=== PATIENT | female | born 1945 | race Caucasian/White ===

== ENCOUNTER → 2017-11-08 10:51 | Outpatient (CLI) | payer MEDICARE, OTHER, SELFPAY ==
--- NOTE | 2017-11-08 | DI.US.S_ITS ---
ULTRASOUND OF RIGHT BREAST: 11/08/2017 CLINICAL: Right breast lump 12:00. Right breast pain 9:00. No prior exams were available for comparison. Color flow ultrasound of the right breast was performed. Bella scale images of the real-time examination were reviewed. IMPRESSION: NEGATIVE There is no sonographic evidence of malignancy. There is no abnormality seen in the right breast to correspond with the area of clinical concern, however, clinical followup is recommended. A 1 year screening mammogram is recommended. This exam was interpreted at Station ID: [id number]. Electronically Signed By: Johnny piedra/sariah:11/08/2017 11:59:30 letter sent: Clinical Evaluation Ultrasound BI-RADS: 1 Negative
== END ==
PROVIDERS: Visit Provider Specialist
DX: N64.4 Mastodynia (principal); N63.10 Unspecified lump in the right breast, unspecified quadrant
CPT/HCPCS: 76642

== ENCOUNTER → 2018-08-31 12:17 | Outpatient (CLI) | payer MEDICARE, OTHER, SELFPAY ==
--- NOTE | 2018-08-31 12:21 | DI.RAD.S_ITS ---
PROCEDURE: XR LUMBAR SPINE MIN 4V INDICATIONS: Scoliosis status post laminectomy TECHNIQUE: 5 views of the lumbar spine were acquired. COMPARISON: None. FINDINGS: Bones: 5 nonrib-bearing vertebrae are present. There is probably abnormal bony alignment with 56? convex leftward scoliosis centered at L1. No vertebral body compression fractures. No suspicious bony lesions. Degenerative disc disease and facet osteoarthritis over the lumbosacral spine is moderately severe, and most pronounced over the middle and lower thirds. Subluxation is not seen in an anterior-posterior orientation but there is grade 1 left lateral subluxation of L2 on L3. Soft tissues: Overlying bowel gas pattern is normal. No suspicious soft tissue calcifications. Oblique images: No pars defects. IMPRESSION: No trauma found. Moderately severe convex leftward scoliosis centered at the thoracolumbar junction, 56?. Moderately severe degenerative disc disease and facet osteoarthritis most prominent over the middle and lower thirds of the lumbosacral spine. Significant multilevel spinal and foraminal stenosis would be expected. Dictated by: Shayne Ang M.D. on 08/31/2018 at 13:16 Approved by: Shayne Ang M.D. on 08/31/2018 at 13:18
--- NOTE | 2018-08-31 12:21 | DI.RAD.S_ITS ---
PROCEDURE: XR THORACIC SPINE 3V INDICATIONS: Scoliosis status post laminectomy TECHNIQUE: 3 views of the thoracic spine were acquired. COMPARISON: None. FINDINGS: Bones: No fractures or dislocations. No suspicious bony lesions. 12 pairs of ribs are noted, and appear intact where visualized. There is 56? convex leftward scoliosis centered at the thoracolumbar junction, and a compensatory lesser degree of convex rightward scoliosis is noted, 43.2? centered at the junction of the middle and lower thirds of the thoracic spine Soft tissues: No paravertebral stripe thickening. IMPRESSION: 43? convex rightward scoliosis centered at the junction of the middle and lower thirds of the thoracic spine. No recent trauma seen. Prominent convex leftward scoliosis has been previously discussed during lumbosacral spine plain film report same day. No subluxation seen. Dictated by: Shayne Ang M.D. on 08/31/2018 at 13:18 Approved by: Shayne Ang M.D. on 08/31/2018 at 13:20
== END ==
PROVIDERS: Visit Provider Physical Medicine & Rehabilitation
DX: M41.25 Other idiopathic scoliosis, thoracolumbar region (principal); M51.37 Other intervertebral disc degeneration, lumbosacral region; M47.817 Spondylosis without myelopathy or radiculopathy, lumbosacral region; M99.83 Other biomechanical lesions of lumbar region
CPT/HCPCS: 72072; 72110; 99214

== ENCOUNTER → 2018-12-13 10:57 | Outpatient (CLI) | payer MEDICARE, OTHER, SELFPAY ==
--- NOTE | 2018-12-13 11:08 | DI.MG.S_ITS ---
BILATERAL DIGITAL SCREENING MAMMOGRAM 3D/2D WITH CAD: 12/13/2018 CLINICAL: Routine screening. Comparison is made to exams dated: 03/01/2016 mammogram - [facility], 10/30/2017 mammogram - [facility], and 08/20/2012 mammogram - [facility]. The tissue of both breasts is heterogeneously dense. This may lower the sensitivity of mammography. Current study was also evaluated with a Computer Aided Detection (CAD) system. No significant masses, calcifications, or other findings are seen in either breast. There has been no significant interval change. IMPRESSION: NEGATIVE There is no mammographic evidence of malignancy. A 1 year screening mammogram is recommended. This exam was interpreted at Station ID: [id number]. NOTE: For mammograms, a report in lay terms will be sent to the patient. Approximately 15% of breast malignancies will not be visualized mammographically. In the management of a palpable breast mass, a negative mammogram must not discourage biopsy of a clinically suspicious lesion. Electronically Signed By: Carmina hsu/sariah:12/13/2018 12:10:12 letter sent: Normal Exam ACR BI-RADS Category 1: Negative [id number]
== END ==
PROVIDERS: PCP Internal Medicine; Visit Provider Internal Medicine
DX: Z12.31 Encounter for screening mammogram for malignant neoplasm of breast (principal)
CPT/HCPCS: 77063; 77067

== ENCOUNTER 2019-04-30 09:56 | Outpatient (CLI) | payer MEDICARE, OTHER, SELFPAY ==
[2019-04-30] VITALS (9 sets, daily range): BP systolic 93–138; BP diastolic 41–90; PULSE 73–86; RESP 14–16; TEMP 36.2; O2SAT 75–99
--- NOTE | 2019-04-30 09:57 | DI.RAD.S_ITS ---
PROCEDURE: PAIN C/T INTERLAMINAR INJECT INDICATIONS: SPONDYLOSIS FINDINGS: Fluoroscopic spot filming was performed to verify placement of spinal needles at the C6-C7 level(s), as labeled on the films. Appropriate location(s) of the needle tip(s) was confirmed by injection of iodinated contrast. IMPRESSION: C6-C7 translaminar epidural needle placement. Dictated by: Patrick Andrade M.D. on 04/30/2019 at 13:16 Approved by: Patrick Andrade M.D. on 04/30/2019 at 13:17
[2019-04-30] MEDS: DEXAMETHASONE 10 MG/ML VIAL 30 MG INJ (10:35)
[2019-04-30] MEDS: LIDOCAINE 1% 20 ML 5 ML INJ (10:35)
[2019-04-30] MEDS: IOPAMIDOL 15 ML VIAL 3 ML INJ (10:35)
--- NOTE | 2019-04-30 10:47 | PM.PROC.1 ---
Procedures Date/Time Date of procedure: 04/30/19 Time of procedure: 10:47 General Procedure description: PREOP DIAGNOSIS 1. CERVICAL STENOSIS, 2. CERVICAL HNP WITH UPPER EXTREMITY RADICULAR FEATURES, POST OP DIAGNOSIS 1. CERVICAL STENOSIS, 2. CERVICAL HNP WITH UPPER EXTREMITY RADICULAR FEATURES, PROCEDURES 1. FLUORSCOPICALLY GUIDED CONTRAST CONTROLLED INTERLAMINAR EPIDURAL STEROID INJECTION - C6/7 TL MAX PHYSICIAN: Martin Porter, DO INDICATIONS Kaylee is referred for treatment of Cervical HNP with Upper Extremity Paresthesias. FINDINGS Cervical Stenosis due to disc deterioration and nerve root irritation and nerve root irritation DESCRIPTION OF PROCEDURE Fluoroscopically guided, contrast-controlled C6/7 translaminar epidural steroid injection with conscious sedation. Following review of allergy and review of potential side effects and complications, including, but not necessarily limited to, infection, allergic reaction, local tissue breakdown, temporary as well as permanent nerve injury, stroke, paralysis, and possible , the patient indicated that patient understood and agreed to proceed. An informed consent document was signed by the patient, witnessed by a nurse, and placed in the patient's chart. Additionally, other treatment options including modalities, medications, and physical therapy were reviewed with the patient. After review of previous anaesthesic history and IV conscious sedation the patient was deemed safe to proceed with todays procedure with IV conscious sedation as ASA class II designation. Safety time-out was performed to confirm patient ID, procedure to be performed and site of procedure. IV sedation was accomplished with a combination of 2mg of Versed and 50mcg of Fentanyl administered by the RN after DO order, titrated to patient comfort during the course of the procedure while the patient remained responsive to all verbal commands. In the prone position, following sterile prep and drape of the cervical region, the C6/7 translaminar space was identified fluoroscopically. The skin was anesthetized via a 25-gauge 1.5-inch needle with 1% lidocaine solution. At this point, a 25-gauge, 2.5-inch short bevel spinal needle was atraumatically introduced and advanced under fluoroscopic guidance into epidural space at the C6/7 translaminar space. Depth was confirmed on lateral view. Radiological data, including multiple fluoroscopic views of the cervical spine, reveal a spinal needle at the C6/7 translaminar space. Lateral views then show placement of the needle in the epidural space. Subsequent views show contrast material flowing superiorly and inferiorly in the epidural space. DSA fluoroscopy with live contrast injection, once again, confirmed no vascular or intrathecal uptake. At this point, using loss of resistance technique with saline and air, the epidural space was entered. Following negative aspiration, injection of approximately 1.5 cc of Isovue-200 with live fluoroscopy in the AP view confirmed epidural flow in the epidural space without vascular or intrathecal uptake observed. Subsequently, a test dose of 1 cc of 1% lidocaine solution was injected and patient was observed for two minutes without signs or symptoms of complications, including abdominal pain, shortness of breath, bilateral upper or lower extremity weakness, nausea and vomiting, prior to steroid injection. At this point, 3cc or 30mg of dexamethasone was then injected without incident. The patient tolerated the procedure well without signs or symptoms of complications prior to being transferred to the recovery area for further monitoring, The patient was then transferred to the recovery area where they were observed for an appropriate period of time after the injection. The patient reported a VAS score of 6 prior to the procedure and a post-procedure VAS of 0. Total Fluoroscopy Time: 37.0 seconds Total Conscious Time: 24min POST OP INSTRUCTIONS The patient was provided a Pain Log to continue to record their response to the target-specific procedure prior to follow-up visit with the referring provider. Additionally, specific post-injection care instructions and a contact number to our office were provided if concerns arise regarding possible complications associated with the procedure are suspected. Martin Porter, Complications: none
--- NOTE | 2019-04-30 10:51 | PC.NURSE ---
ACCEPTED CARE OF PT IN POST PROC AREA IN STABLE CONDITION.
--- NOTE | 2019-04-30 10:53 | PC.NURSE ---
Post procedure note: time out at 1022. Medicated for procedure per providers orders. VSS, O2 sat decreased after dose of medication. Increased to 4L/certified paralegal. Sats WNL. Respirations regular and unlabored throughout. tolerated procedure with mild discomfort. Able to sit and transfer to w/c without difficulties and standby assist. Denied any unusual numbness or tingling. Transferred via w/c for post procedure monitoring. Handoff report given to Shaye Brunner RN at 0162
--- NOTE | 2019-04-30 11:15 | DI.RAD.S_ITS ---
PROCEDURE: XR KNEE LT 3V INDICATIONS: knee pain TECHNIQUE: 3 views of the knee were acquired. COMPARISON: Same day contralateral right knee. FINDINGS: Bones: No fractures or dislocations. Mild joint space narrowing in the medial compartment. Tricompartmental osteophytosis. No suspicious bony lesions. Soft tissues: No significant joint effusion. No suspicious soft tissue calcifications. IMPRESSION: Mild to moderate osteoarthritis of the left knee. Dictated by: Patrick Andrade M.D. on 04/30/2019 at 13:03 Approved by: Patrick Andrade M.D. on 04/30/2019 at 13:04
--- NOTE | 2019-04-30 11:15 | DI.RAD.S_ITS ---
PROCEDURE: XR KNEE RT 3V INDICATIONS: knee pain TECHNIQUE: 3 views of the knee were acquired. COMPARISON: Contralateral left knee radiographs. FINDINGS: Bones: No fractures or dislocations. Mild joint space narrowing in the medial compartment. Tricompartmental osteophytosis. No suspicious bony lesions. Soft tissues: Trace joint effusion. No suspicious soft tissue calcifications. IMPRESSION: Moderate osteoarthritis of the right knee. Dictated by: Patrick Andrade M.D. on 04/30/2019 at 13:01 Approved by: Patrick Andrade M.D. on 04/30/2019 at 13:02
== END 2019-04-30 11:45 | disposition home or self-care (01) ==
PROVIDERS: PCP Internal Medicine; Visit Provider Physical Medicine & Rehabilitation
DX: M48.02 Spinal stenosis, cervical region (principal); M50.123 Cervical disc disorder at C6-C7 level with radiculopathy; M25.562 Pain in left knee; M25.561 Pain in right knee; M17.0 Bilateral primary osteoarthritis of knee; R20.2 Paresthesia of skin
CPT/HCPCS: 62321; 73562; 99152; J1100; J2250; J3010